=== PATIENT | female | born 1950 ===

== ENCOUNTER → 2018-03-10 | Outpatient (CLI) | payer MEDICARE ==
--- NOTE | 2018-03-11 11:22 | RADIOLOGY IMAGING REPORT ---
FACILITY: [facility] PATIENT NAME: MINERVA BARRIENTOS : [id number] MR: [id number] V: [id number] EXAM DATE: [id number] ORDERING PHYSICIAN: ZOEY DUGGAN TECHNOLOGIST: Mireille Paredes PROCEDURE:BILATERAL DIGITAL SCREENING MAMMOGRAM WITH CAD ASSISTED INTERPRETATION & 3D TOMOSYNTHESIS COMPARISON:Mammogram 01/21/2017. INDICATIONS:SCREENING FINDINGS: Breast tissue demonstrates scattered fibroglandular tissue elements. There is no suspicious mass, calcification, or architectural distortion. Stable calcifications in Left breast are seen. DIAGNOSTIC CATEGORY 2--BENIGN FINDING. RECOMMENDATIONS: ROUTINE MAMMOGRAM AND CLINICAL EVALUATION. IMPRESSION: BIRADS 2: Benign finding. No mammographic evidence for malignancy. Dictated by: Issac Carr M.D. on 03/10/2018 at 15:18 Transcribed by: CAROLINE on 03/10/2018 at 15:32 Approved by: Issac Carr M.D. on 03/10/2018 at 16:13 [facility]
== END ==
LOC: MAMO 01:02
PROVIDERS: ATTEND Physician Assistant
DX: Z12.31 Encounter for screening mammogram for malignant neoplasm of breast (principal); R92.1 Mammographic calcification found on diagnostic imaging of breast
CPT/HCPCS: 77063; 77067

== ENCOUNTER → 2018-05-11 | Outpatient (CLI) | payer MEDICARE ==
--- NOTE | 2018-05-11 10:59 | RADIOLOGY IMAGING REPORT ---
FACILITY: [facility] PATIENT NAME: Caty Guillaume : 1950 MR: [id number] V: [id number] EXAM DATE: ORDERING PHYSICIAN: ZOEY DUGGAN TECHNOLOGIST: Location: [facility] [place] Patient: Caty Guillaume : 1950 Visit/Account:[id number] Date of Sevice: 05/11/2018 DEXA Scan Clinical history: Postmenopausal. Comparison: None available. LUMBAR SPINE: The bone mineral density (BMD) measured from L1-L4 correlates with a Z-score by 0.3 and a T-score of -2.3 which is osteopenia as defined by the World Health Organization. The corresponding risk of frac ture in the lumbar spine is 4-6 times increased compared with a young adult reference population. HIP: Bone mineral density (BMD) measured in the Left total hip region correlates with a Z-score 0.2 and a T-score of -1.3 which is osteopenia as defined by the World Health Organization. The corresponding r isk of fracture in the hip is 2-3 times increased compared with a young adult reference population. Score left femoral neck -1.9 Bone mineral density (BMD) measured in the Femoral Neck region measures 0.772 g/cm2. Impression: 1. Lumbar spine: Osteopenia. 2. Left Hip: Osteopenia. 3. Femoral Neck: Bone Mineral Density is 0.772 g/cm2 The next DEXA scan of this patient should include the following sites: L1-L4 and the left hip. FRAX? WHO Fracture Risk Assessment Tool link: <http://www.shef.ac.uk/FRAX/tool.jsp?locationValue=9> PLEASE NOTE: 1) The World Health Organization defines low BMD as follows: T-score Normal > -1 Osteopenia < -1 and > -2.5 Osteoporosis < -2.5 without fractures Established osteoporosis < -2.5 with fractures 2) In general, you may wish to consider: Diagnosis Treatment Follow-up DEXA Normal BMD Prevention 2-3 years Osteopenia Prevention/therapy 1-2 years Osteoporosis Therapy Yearly 3) Fracture risk estimated from the T-score is more accurate for vertebral fractures (often spontane ous) than for hip fractures. Report Dictated By: Randi Alves MD at 05/11/2018 10:53 AM Report E-Signed By: Randi Alves MD at 05/11/2018 10:55 AM WSN:GEE
== END ==
LOC: RAD 02:28
PROVIDERS: ATTEND Physician Assistant
DX: M85.89 Other specified disorders of bone density and structure, multiple sites (principal)
CPT/HCPCS: 77080